=== PATIENT | male | born 1995 | race Caucasian/White ===

== ENCOUNTER 2023-12-13 12:25 | Inpatient (IN) | payer MEDICAID, OTHER ==
[~2023-12-13] VITALS: Ht 180.3 cm; Wt 60.8 kg
[2023-12-13] MEDS: LIDOcaine 1% W/epiNEPHrine 1:100,000 20ml vial SQ ONE (14:19)
[2023-12-13] MEDS: TETanus/Pertussis (Acell)/Diphther VAC/PF (Tdap-Adult) 0.5ml syringe IMVAC ONE (14:20)
[2023-12-13] MEDS: normal saline 1000ML IV soln IVB ONE (14:21)
[2023-12-13] MEDS: piperacillin/tazo 3.375gm/50ml 50 ML IV ONE (14:24)
[2023-12-13 14:26] LABS: BASOPHILS % (AUTO) 0.3 % (0-1); EOSINOPHILS % (AUTO) 0.3 % (0-6); HEMATOCRIT 39.8 % (42.0-52.0); HEMOGLOBIN 13.2 g/dl (14.0-17.9); LYMPHOCYTES % (AUTO) 7.3 % (21-51); MEAN CORPUSCULAR HEMOGLOBIN 30.2 PG (27.0-31.0); MEAN CORPUSCULAR HGB CONC 33.1 g/dL (33.0-36.5); MEAN CORPUSCULAR VOLUME 91.1 FL (78-98); MONOCYTES # (AUTO) 1.3 X10'3 (0-0.9); MONOCYTES % (AUTO) 9.2 % (2-12); NEUTROPHILS # (AUTO) 11.8 X10'3 (1.8-7.7); NEUTROPHILS % (AUTO) 82.9 % (42-75); PLATELET COUNT 315 X10'3 (140-440); RED BLOOD COUNT 4.37 X10'6 (4.70-6.10); RED CELL DISTRIBUTION WIDTH 13.2 % (11.5-14.5); WHITE BLOOD COUNT 14.3 X10'3 (4.5-11.0)
[2023-12-13] MEDS: vancomycin/NS 1 GM ADD-VANTAGE 250 ML IV ONE (14:27)
[2023-12-13 14:35] LABS: ALANINE AMINOTRANSFERASE 25 U/L (12-78); ALBUMIN 3.3 G/DL (3.4-5.0); ALBUMIN/GLOBULIN RATIO 0.8 (1.1-1.5); ALKALINE PHOSPHATASE 79 IU/L (46-116); ANION GAP 6 (8-16); ASPARTATE AMINO TRANSFERASE 15 U/L (10-37); BILIRUBIN,TOTAL 0.8 MG/DL (0.1-1.0); BLOOD UREA NITROGEN 8 MG/DL (7-18); BUN/CREATININE RATIO 11.8 (10.0-20.0); CALCIUM 9.2 MG/DL (8.5-10.1); CHLORIDE 102 MMOL/L (99-107); CREATININE 0.68 MG/DL (0.60-1.10); ETHANOL < 10 MG/DL (<10); GLUCOSE 109 MG/DL (70-104); MAGNESIUM 2.1 MG/DL (1.5-2.4); SODIUM 138 MMOL/L (135-145); TOTAL CARBON DIOXIDE 30.5 MMOL/L (24-32); TOTAL PROTEIN 7.4 G/DL (6.4-8.2); eCRCL 139 ML/MIN; eGFR > 90 ML/MIN
[2023-12-13 15:27] LABS: BILIRUBIN,DIRECT 0.2 MG/DL (0-0.3)
[2023-12-13] MEDS ORDERED: LORazepam 2 mg/ml vial IV PRN (15:40)
[2023-12-13] MEDS ORDERED: magnesium 4gm in 100ml NS 100 ML IV PRN (15:40)
[2023-12-13] MEDS ORDERED: magnesium Cl slow-release 64mg tablet PO PRN (15:40)
[2023-12-13] MEDS ORDERED: LORazepam 1 MG tablet PO PRN (15:40)
[2023-12-13] MEDS ORDERED: mag hydrox/Alum hydrox/simeth 30ml oral suspension PO PRN (15:40)
[2023-12-13] MEDS ORDERED: acetaminophen 325mg tablet PO PRN (15:40)
[2023-12-13] MEDS ORDERED: morphine 2 MG/ML inj. syringe IV PRN ×2 (15:40)
[2023-12-13] MEDS ORDERED: magnesium hydroxide 30ml (MOM) UD suspension PO PRN (15:40)
[2023-12-13] MEDS ORDERED: potassium Cl 40MEQ/1/2NS 520ml 520 ML IV PRN (15:40)
[2023-12-13] MEDS ORDERED: ondansetron/PF 4mg/2ml inj IV PRN (15:40)
[2023-12-13] MEDS ORDERED: magnesium 2GM in 50ml NS 50 ML IV PRN (15:40)
[2023-12-13] MEDS ORDERED: potassium Cl 20 mEq SR tablet PO PRN ×2 (15:40)
[2023-12-13] MEDS: LORazepam 1 MG tablet PO ONE (16:19)
[2023-12-13] MEDS: normal saline 1000ml 1,000 ML IV SCH (16:20)
[2023-12-13 16:53] LABS: URINE AMPHETAMINE SCREEN POSITIVE (Neg); URINE BARBITUATE SCREEN NEGATIVE (Neg); URINE BENZODIAZEPINES SCREEN NEGATIVE (Neg); URINE CANNABINOID SCREEN POSITIVE (Neg); URINE COCAINE SCREEN NEGATIVE (Neg); URINE METHADONE SCREEN NEGATIVE (Neg); URINE PHENCYCLIDINE SCREEN NEGATIVE (Neg)
[2023-12-13 17:09] LABS: BILIRUBIN,URINE NEGATIVE (Neg); CLARITY,URINE SLIGHTLY CLOUDY (Clear); COLOR,URINE YELLOW (Yellow); GLUCOSE, URINE NEGATIVE (Neg); KETONES,URINE NEGATIVE (Neg); LEUKOCYTE ESTERASE ,URINE TRACE (Neg); NITRITES, URINE NEGATIVE (Neg); OCCULT BLOOD,URINE NEGATIVE (Neg); PH,URINE 6.5 (4.8-8.0); PROTEIN,URINE NEGATIVE (Neg); UROBILINOGEN,URINE 0.2 E.U/dL (0.2-1.0)
[2023-12-13 17:40] LABS: UA COLLECTION TYPE CLN CATCH MIDSTREAM
[2023-12-13 17:41] LABS: WBC,URINE 20-30 /HPF (0-4)
[2023-12-13 17:42] LABS: RBC,URINE 0-2 /HPF (0-2)
[2023-12-13 17:43] LABS: BACTERIA,URINE 1+ /HPF (Neg); MUCUS STRANDS NONE SEEN /LPF (Neg); SQUAMOUS EPITHELIAL CELL,UR FEW /LPF (FEW); WBC CLUMPS,URINE FEW /HPF (NEGATIVE)
[2023-12-13] MEDS: docusate sod 100mg capsule PO SCH (19:39)
[2023-12-13] MEDS: acetaminophen 325mg tablet PO PRN (19:39)
[2023-12-13] MEDS: heparin, porcine 5000 units/ml vial SQ SCH (20:08)
[2023-12-13] MEDS ORDERED: temazepam 15mg capsule PO PRN (21:00)
[2023-12-13 22:59] VITALS: BP 106/67; PULSE 72; RESP 16; TEMP 97.9; O2SAT 100
[2023-12-13 23:00] VITALS: RESP 16; O2SAT 100
[2023-12-14] MEDS: vancomycin/NS 1 GM ADD-VANTAGE 250 ML IV SCH ×2 (00:19→20:35)
[2023-12-14 07:00] VITALS: BP 123/75; PULSE 74; RESP 18; TEMP 98.6; O2SAT 100
[2023-12-14 08:00] VITALS: RESP 16; O2SAT 100
[2023-12-14 08:07] LABS: BASOPHILS % (AUTO) 0.4 % (0-1); EOSINOPHILS # (AUTO) 0.1 X10'3 (0-0.9); EOSINOPHILS % (AUTO) 0.7 % (0-6); HEMATOCRIT 39.5 % (42.0-52.0); LYMPHOCYTES # (AUTO) 1.1 X10'3 (1.1-4.8); LYMPHOCYTES % (AUTO) 10.4 % (21-51); MEAN CORPUSCULAR VOLUME 90.9 FL (78-98); MEAN PLATELET VOLUME 7.5 FL (7.4-10.4); MONOCYTES # (AUTO) 0.8 X10'3 (0-0.9); MONOCYTES % (AUTO) 7.7 % (2-12); NEUTROPHILS # (AUTO) 8.8 X10'3 (1.8-7.7); NEUTROPHILS % (AUTO) 80.8 % (42-75); PLATELET COUNT 314 X10'3 (140-440); RED BLOOD COUNT 4.34 X10'6 (4.70-6.10); WHITE BLOOD COUNT 10.9 X10'3 (4.5-11.0)
[2023-12-14 08:24] LABS: ALANINE AMINOTRANSFERASE 25 U/L (12-78); ALBUMIN 2.9 G/DL (3.4-5.0); ALBUMIN/GLOBULIN RATIO 0.7 (1.1-1.5); ALKALINE PHOSPHATASE 72 IU/L (46-116); ANION GAP 5 (8-16); ASPARTATE AMINO TRANSFERASE 18 U/L (10-37); BILIRUBIN,TOTAL 0.5 MG/DL (0.1-1.0); BLOOD UREA NITROGEN 5 MG/DL (7-18); BUN/CREATININE RATIO 8.9 (10.0-20.0); CALCIUM 8.7 MG/DL (8.5-10.1); CHLORIDE 106 MMOL/L (99-107); CREATININE 0.56 MG/DL (0.60-1.10); GLUCOSE 99 MG/DL (70-104); SODIUM 138 MMOL/L (135-145); TOTAL CARBON DIOXIDE 26.6 MMOL/L (24-32); TOTAL PROTEIN 6.8 G/DL (6.4-8.2); eCRCL 169 ML/MIN; eGFR > 90 ML/MIN
[2023-12-14] MEDS: HYDROcodone/acetaminophen 10/325mg tab PO PRN (08:39)
[2023-12-14] MEDS: multivitamins, therapeutics tablet PO SCH (08:39)
[2023-12-14 11:00] VITALS: BP 100/53; PULSE 76; RESP 14; TEMP 97.9; O2SAT 99
[2023-12-14] MEDS ORDERED: NO HOME MEDS (11:16)
[2023-12-14] MEDS: nicotine 14mg patch - 24hr TD SCH (13:26)
[2023-12-14 18:00] VITALS: BP 117/60; PULSE 74; RESP 14; TEMP 97.7; O2SAT 99
[2023-12-14] MEDS: VANCOMYCIN LEVEL IV ONE (18:30)
[2023-12-14 22:00] VITALS: BP 105/61; PULSE 91; RESP 13; TEMP 97.9; O2SAT 100
[2023-12-15] MEDS: HYDROcodone/acetaminophen 5mg/325mg tablet PO PRN (03:06)
[2023-12-15 06:00] VITALS: BP 121/76; PULSE 67; RESP 18; TEMP 98.4; O2SAT 100
[2023-12-15 08:34] LABS: BASOPHILS # (AUTO) 0.1 X10'3 (0-0.2); BASOPHILS % (AUTO) 0.7 % (0-1); EOSINOPHILS # (AUTO) 0.1 X10'3 (0-0.9); EOSINOPHILS % (AUTO) 1.6 % (0-6); HEMOGLOBIN 13.5 g/dl (14.0-17.9); LYMPHOCYTES # (AUTO) 1.3 X10'3 (1.1-4.8); LYMPHOCYTES % (AUTO) 16.8 % (21-51); MEAN CORPUSCULAR HGB CONC 33.1 g/dL (33.0-36.5); MEAN CORPUSCULAR VOLUME 90.7 FL (78-98); MEAN PLATELET VOLUME 7.4 FL (7.4-10.4); MONOCYTES # (AUTO) 0.6 X10'3 (0-0.9); MONOCYTES % (AUTO) 7.4 % (2-12); NEUTROPHILS # (AUTO) 5.9 X10'3 (1.8-7.7); NEUTROPHILS % (AUTO) 73.5 % (42-75); PLATELET COUNT 337 X10'3 (140-440); RED BLOOD COUNT 4.52 X10'6 (4.70-6.10); RED CELL DISTRIBUTION WIDTH 12.9 % (11.5-14.5)
[2023-12-15] MEDS ORDERED: NICO-631 TD (08:37)
[2023-12-15] MEDS ORDERED: CEPH250T PO (08:37)
[2023-12-15 09:05] LABS: ALANINE AMINOTRANSFERASE 20 U/L (12-78); ALBUMIN 2.8 G/DL (3.4-5.0); ALBUMIN/GLOBULIN RATIO 0.7 (1.1-1.5); ALKALINE PHOSPHATASE 79 IU/L (46-116); ANION GAP 7 (8-16); ASPARTATE AMINO TRANSFERASE 14 U/L (10-37); BILIRUBIN,TOTAL 0.2 MG/DL (0.1-1.0); BLOOD UREA NITROGEN 11 MG/DL (7-18); BUN/CREATININE RATIO 17.5 (10.0-20.0); CALCIUM 8.6 MG/DL (8.5-10.1); CHLORIDE 107 MMOL/L (99-107); CREATININE 0.63 MG/DL (0.60-1.10); GLUCOSE 93 MG/DL (70-104); POTASSIUM 3.9 MMOL/L (3.5-5.1); SODIUM 139 MMOL/L (135-145); TOTAL CARBON DIOXIDE 24.8 MMOL/L (24-32); TOTAL PROTEIN 6.8 G/DL (6.4-8.2); eCRCL 150 ML/MIN; eGFR > 90 ML/MIN
[2023-12-15] MEDS ORDERED: VANCOMYCIN 1,500MG in normal saline IV soln 300 ML IV SCH (11:00)
[2023-12-16] MEDS ORDERED: MESSAGE TO NURSING IV ONE (10:30)
[2023-12-17] MEDS ORDERED: thiamine 100mg tablet PO SCH (08:00)
[2023-12-18] MEDS ORDERED: folic acid 1mg tablet PO SCH (08:00)
== END 2023-12-15 09:01 | disposition home or self-care (01) | DRG 603 ==
LOC: ER 12:26 → ED HOLD 15:37 → UNDOADMIN 15:37 → ED HOLD 15:43 → ORTHO 4S 22:28 → ED HOLD 22:28
PROVIDERS: ADMIT Internal Medicine; ATTEND Internal Medicine
DX: L03.114 Cellulitis of left upper limb (principal); F10.10 Alcohol abuse, uncomplicated; F11.10 Opioid abuse, uncomplicated; F15.10 Other stimulant abuse, uncomplicated; F12.10 Cannabis abuse, uncomplicated; F17.210 Nicotine dependence, cigarettes, uncomplicated; Y90.0 Blood alcohol level of less than 20 mg/100 ml; Z71.6 Tobacco abuse counseling; Z79.899 Other long term (current) drug therapy
CPT/HCPCS: 36415; 73090; 80048; 80053; 80076; 80202; 80305; 80320; 81001; 83605; 83735; 84145; 85025; 87040; 87088; 90715; 99285; A6223; A6446; A6449; G0378; J1644; J2543; J3370; J3490; J7030

== ENCOUNTER 2024-11-01 14:11 | Emergency (ER) | payer MEDICAID ==
[~2024-11-01] VITALS: Ht 180.3 cm; Wt 61.5 kg
[~2024-11-01 14:11] MED LIST: CEPH250T PO; NICO-631 TD
[2024-11-01 14:14] VITALS: BP 157/101; PULSE 100; RESP 16; TEMP 98.9; O2SAT 100
== END 2024-11-01 17:28 | disposition left against medical advice (07) ==
LOC: ER 14:11
DX: M25.441 Effusion, right hand (principal); F12.90 Cannabis use, unspecified, uncomplicated; F15.90 Other stimulant use, unspecified, uncomplicated
CPT/HCPCS: 99281